=== PATIENT | female | born 1975 | race Caucasian/White ===

== ENCOUNTER 2021-05-07 12:06 | Outpatient (CLI) | payer OTHER, SELFPAY ==
--- NOTE | ~2021-05-07 | MMUS_ITS ---
EXAMINATION: MM diagnostic mammo BI, US breast RT limited HISTORY: Palpable lump in the upper outer quadrant of the right breast TECHNIQUE: Craniocaudal images of the right breast were performed and synthetic 2-D images were gener ated. Craniocaudal view of the left breast, mediolateral oblique and mediolateral views of both breas ts were obtained using full field digital mammography. CAD analysis was submitted and interpreted. Hi gh resolution limited right breast ultrasound was performed. COMPARISON: None, baseline BREAST PARENCHYMAL COMPOSITION: The breasts are heterogeneously dense, which may obscure small masses . FINDINGS: MAMMOGRAPHIC FINDINGS: Right breast: There is a 3.4 cm oval, obscured, equal density mass in the posterior third of the lowe r-outer breast at the 8:00 location 5 cm from the nipple. There is a 1.8 cm oval, obscured, low densi ty mass in the middle third of the central breast 3 cm from the nipple. No definite mammographic federico elate is identified for the reported palpable abnormality in the upper outer quadrant of the breast. Left breast: There is no evidence of suspicious mass, calcification, or architectural distortion to suggest malignancy. ULTRASOUND: There are simple cysts of the right breast corresponding to the mammographically detected masses. The re is a 6 mm cyst at the 11:00 location 4 cm from the nipple. There is an adjacent 7 mm x 5 mm oval, circumscribed, parallel, hypoechoic mass with posterior acoustic enhancement and no internal vascular ity at the 11:00 location 4 cm from the nipple. IMPRESSION: 1. Right breast cysts and probably benign mass at the 11:00 location 4 cm from the nipple. 2. Recommend 6 month follow-up targeted right breast ultrasound. BI-RADS category 3, probably benign findings. Reviewed, dictated and finalized at location A. [employer] IMPRESSION: 1. Right breast cysts and probably benign mass at the 11:00 location 4 cm from the nipple. 2. Recommend 6 month follow-up targeted right breast ultrasound. BI-RADS category 3, probably benign findings.
== END 2021-05-07 12:07 | disposition home or self-care (01) ==
LOC: ANHIMG 12:07
PROVIDERS: PCP Registered Nurse; Visit Provider Obstetrics & Gynecology
DX: N63.0 Unspecified lump in unspecified breast (principal); R92.8 Other abnormal and inconclusive findings on diagnostic imaging of breast
CPT/HCPCS: 76642; 77066

== ENCOUNTER 2022-02-11 12:24 | Outpatient (CLI) | payer OTHER, SELFPAY ==
--- NOTE | ~2022-02-11 | US_ITS ---
EXAMINATION: US breast RT limited HISTORY: Six-month follow-up for probably benign right breast mass TECHNIQUE: Targeted ultrasound was performed in the upper outer quadrant of the right breast. FINDINGS: The previously described mass at the 11:00 location 4 cm from the nipple is no longer ident ified. No suspicious cystic or solid mass is seen. IMPRESSION: Resolved right breast mass. Routine screening mammography is recommended. BI-RADS Category 1: Negative Reviewed, dictated and finalized at location A.
== END 2022-02-11 12:25 | disposition home or self-care (01) ==
LOC: ANHIMG 12:25
PROVIDERS: PCP Registered Nurse; Visit Provider Obstetrics & Gynecology
DX: N63.0 Unspecified lump in unspecified breast (principal); R92.8 Other abnormal and inconclusive findings on diagnostic imaging of breast
CPT/HCPCS: 76642